=== PATIENT | female | born 1985 | race Two or more races ===

== ENCOUNTER 2018-08-30 15:44 | Outpatient (CLI) | payer OTHER | END 2018-08-30 15:54 | disposition home or self-care (01) | LOC: LAB 15:44 | DX: J03.80 Acute tonsillitis due to other specified organisms (principal) ==

== ENCOUNTER → 2018-08-30 | Outpatient (CLI) | payer OTHER | END | disposition home or self-care (01) | LOC: RAD 14:39 | DX: J01.90 Acute sinusitis, unspecified (principal) ==

== ENCOUNTER → 2019-04-27 | Emergency (ER) | payer OTHER ==
[~2019-04-27] VITALS: Ht 162.6 cm; Wt 80.3 kg
[~2019-04-27] MED LIST: ZITHROMAX500 MG PO
== END | disposition home or self-care (01) ==
LOC: ER 11:02
DX: B34.9 Viral infection, unspecified (principal)

== ENCOUNTER 2019-05-16 11:42 | Outpatient (CLI) | payer OTHER | END 2019-05-16 11:55 | disposition home or self-care (01) | LOC: LAB 11:42 | DX: J45.998 Other asthma (principal) ==

== ENCOUNTER 2022-07-26 09:23 | Outpatient (CLI) | payer OTHER | END 2022-07-26 09:30 | disposition home or self-care (01) | LOC: LAB 09:23 | PROVIDERS: ATTEND Pediatrics | DX: E06.3 Autoimmune thyroiditis (principal); Z13.0 Encounter for screening for diseases of the blood and blood-forming organs and certain disorders involving the immune mechanism; E78.5 Hyperlipidemia, unspecified; Z13.1 Encounter for screening for diabetes mellitus ==

== ENCOUNTER 2022-07-26 10:07 | Outpatient (CLI) | payer OTHER | END 2022-07-26 10:15 | disposition home or self-care (01) | LOC: SONOGRAMA 10:07 | PROVIDERS: ATTEND Pediatrics | DX: E06.3 Autoimmune thyroiditis (principal) ==

== ENCOUNTER → 2022-08-01 15:31 | Outpatient (CLI) | payer OTHER | END | disposition home or self-care (01) | LOC: LAB 15:31 | PROVIDERS: ATTEND Pediatrics | DX: N39.0 Urinary tract infection, site not specified (principal) ==

== ENCOUNTER 2023-03-03 18:17 | Emergency (ER) | payer OTHER ==
[~2023-03-03] VITALS: Ht 162.6 cm; Wt 81.6 kg
[2023-03-03 19:53] LABS: HEMATOCRIT 39.3 % (36.0-45.00); HEMOGLOBIN 13.1 g/dL (12.0-15.00); MEAN CELL VOLUME 89.7 fL (80.00-100.00); MEAN CORPUSCULAR HEMOGLOBIN 29.8 pg (27.00-32.0); MEAN CORPUSCULAR HGB CONC 33.2 g/dl (32.0-36.0); PLATELET COUNT 248 K/uL (150-450); RED BLOOD COUNT 4.39 M/uL (4.00-6.00)
[2023-03-03 20:32] LABS: CALCIUM 9.5 mg/dL (8.5-10.1); CREATININE SERUM 0.72 mg/dL (0.55-1.02); GFR 91.65; POTASSIUM 3.58 mEq/L (3.5-5.1)
== END 2023-03-03 21:33 | disposition home or self-care (01) ==
LOC: ER 18:18
PROVIDERS: General Practice
DX: O03.9 Complete or unspecified spontaneous abortion without complication (principal); O30.001 Twin pregnancy, unspecified number of placenta and unspecified number of amniotic sacs, first trimester; Z3A.08 8 weeks gestation of pregnancy

== ENCOUNTER 2023-03-05 16:27 | Outpatient (CLI) | payer OTHER ==
[2023-03-05 17:08] LABS: HEMATOCRIT 38.4 % (36.0-45.00); HEMOGLOBIN 13.1 g/dL (12.0-15.00); MEAN CELL VOLUME 88.3 fL (80.00-100.00); PLATELET COUNT 229 K/uL (150-450); RED BLOOD COUNT 4.35 M/uL (4.00-6.00); RED CELL DISTRIBUTION WIDTH 12.9 % (11.5-14.5)
== END 2023-03-05 16:48 | disposition home or self-care (01) ==
LOC: LAB 16:27
PROVIDERS: ATTEND General Practice
DX: Z12.11 Encounter for screening for malignant neoplasm of colon (principal); D64.9 Anemia, unspecified; E03.8 Other specified hypothyroidism; N95.1 Menopausal and female climacteric states; I10 Essential (primary) hypertension; C51.9 Malignant neoplasm of vulva, unspecified; N30.00 Acute cystitis without hematuria; C83.51 Lymphoblastic (diffuse) lymphoma, lymph nodes of head, face, and neck; A64 Unspecified sexually transmitted disease; R97.0 Elevated carcinoembryonic antigen [CEA]; R79.89 Other specified abnormal findings of blood chemistry; E55.9 Vitamin D deficiency, unspecified; A60.9 Anogenital herpesviral infection, unspecified; E88.818 Other insulin resistance

== ENCOUNTER 2024-02-04 12:04 | Emergency (ER) | payer OTHER ==
[~2024-02-04] VITALS: Ht 162.6 cm; Wt 81.6 kg
[2024-02-04 13:45] LABS: HEMATOCRIT 37.9 % (36.0-45.00); HEMOGLOBIN 12.8 g/dL (12.0-15.00); MEAN CELL VOLUME 88.7 fL (80.00-100.00); MEAN CORPUSCULAR HGB CONC 33.8 g/dl (32.0-36.0); PLATELET COUNT 230 K/uL (150-450); RED BLOOD COUNT 4.27 M/uL (4.00-6.00); RED CELL DISTRIBUTION WIDTH 13.3 % (11.5-14.5)
== END 2024-02-04 18:17 | disposition left against medical advice (07) ==
LOC: ER 12:05
PROVIDERS: Emergency Medicine
DX: O20.8 Other hemorrhage in early pregnancy (principal); Z3A.01 Less than 8 weeks gestation of pregnancy

== ENCOUNTER → 2024-02-19 09:59 | Outpatient (CLI) | payer OTHER ==
[2024-02-19 12:13] LABS: T4 FREE 0.9 NG/ML (0.76-1.46); TSH 1.15 uIU/mL (0.358-3.74)
[2024-02-21 09:08] LABS: PROLACTIN 14.1 ng/mL (4.8-33.4); hav igm Negative (Negative); hcv Non Reactive (Non Reactive); hep b c Negative (Negative); hep b s ag Negative (Negative)
[2024-02-21 11:12] LABS: INSULIN LEVELS 5.9 uIU/mL (2.6-24.9)
[2024-02-27 15:04] LABS: T T 6 ng/dL (8-60); test free 0.5 pg/mL (0.0-4.2)
== END | disposition home or self-care (01) ==
LOC: LAB 09:59
PROVIDERS: ATTEND Obstetrics & Gynecology
DX: D64.9 Anemia, unspecified (principal); Z12.11 Encounter for screening for malignant neoplasm of colon; E03.8 Other specified hypothyroidism; N95.0 Postmenopausal bleeding; I10 Essential (primary) hypertension; C51.9 Malignant neoplasm of vulva, unspecified; N30.00 Acute cystitis without hematuria; E83.51 Hypocalcemia; A64 Unspecified sexually transmitted disease; N39.0 Urinary tract infection, site not specified; R97.8 Other abnormal tumor markers; E55.9 Vitamin D deficiency, unspecified; A60.9 Anogenital herpesviral infection, unspecified; N97.9 Female infertility, unspecified

== ENCOUNTER 2024-03-25 09:10 | Outpatient (CLI) | payer OTHER | END 2024-03-25 09:20 | disposition home or self-care (01) | LOC: SONOGRAMA 09:10 | PROVIDERS: ATTEND General Practice | DX: R10.2 Pelvic and perineal pain (principal); N97.9 Female infertility, unspecified ==

== ENCOUNTER 2025-01-06 08:00 | Outpatient (CLI) | payer OTHER ==
[~2025-01-06] VITALS: Ht 162.6 cm; Wt 86.2 kg
[2025-01-06 10:45] VITALS: BP 116/79
[2025-01-06 10:50] LABS: URINE APPEARANCE Clear; URINE BILIRRUBIN Negative (NEGATIVE); URINE BLOOD Negative; URINE COLOR Yellow; URINE GLUCOSE Negative (NEGATIVE); URINE KETONE Negative (NEGATIVE); URINE LEUKOCYTE Negative; URINE NITRATE Negative; URINE PROTEIN Negative (NEGATIVE); URINE UROBILINOGEN 0.2 E.U./dl
[2025-01-06 10:52] LABS: BASO % 0.7 % (0.1-1.2); EOS # 0.09 (0.04-0.54); EOS % 1.3 % (0.7-7.0); LYMPH # 2.36 (1.18-3.74); LYMPH % 33.1 % (19.3-53.1); MEAN PLATELET VOLUME 10.50 fl (9.4-12.4); MONO # 0.60 (0.24-0.82); MONO % 8.4 % (4.7-12.5); NEUT # 4.01 (1.56-6.13); NEUT % 56.2 % (34.0-71.1); RED CELL DISTRIBUTION WIDTH 12.7 % (11.6-14.4)
[2025-01-06 10:53] LABS: URINE BACTERIA 842.4 uL (0.0-1933); URINE EPITHELIAL CELLS 10.4 uL (0.0-38.8); URINE RBC 3.6 uL (0.0-20.8); URINE WBC 5.2 uL (0.0-23.2)
[2025-01-06 10:54] LABS: URINE CAST 0.14 uL (0.0-1.40)
[2025-01-06 11:23] LABS: INR 1.0
[2025-01-06 11:30] LABS: ALT/SGPT 23.0 U/L (12-78); AST/SGOT 12.0 U/L (15-37); BILIRUBIN TOTAL 0.85 mg/dL (0.3-1.2); BUN CREA RATIO 14.0 (7.0-25.0); CREATININE SERUM 0.71 mg/dL (0.55-1.02); GFR 92.63; GLOBULINA 3.2 G/DL (2.4-3.5); GLUCOSE FASTING 90.0 mg/dL (65-100); OSMOLALITY SERUM 284.0 MOSM/KG (275-295)
== END 2025-01-06 08:15 | disposition home or self-care (01) ==
LOC: RAD 08:00 → LAB 08:00 → RAD 08:15 → ADM 08:30 → EDSTATUS 01-13 08:30 → CIR.AMB 01-13 08:30
PROVIDERS: ATTEND Orthopaedic Surgery Hand Surgery
DX: M24.541 Contracture, right hand (principal); E11.9 Type 2 diabetes mellitus without complications; E78.00 Pure hypercholesterolemia, unspecified; E78.3 Hyperchylomicronemia; D65 Disseminated intravascular coagulation [defibrination syndrome]; D66 Hereditary factor VIII deficiency; N39.0 Urinary tract infection, site not specified; Z01.810 Encounter for preprocedural cardiovascular examination; I10 Essential (primary) hypertension; Z01.818 Encounter for other preprocedural examination

== ENCOUNTER 2025-02-04 15:59 | Inpatient (IN) | payer OTHER ==
[~2025-02-04] VITALS: Ht 162.6 cm; Wt 86.2 kg
[2025-02-04 16:31] LABS: BASO % 0.7 % (0.1-1.2); EOS # 0.08 (0.04-0.54); EOS % 0.9 % (0.7-7.0); LYMPH # 2.62 (1.18-3.74); LYMPH % 29.5 % (19.3-53.1); MEAN PLATELET VOLUME 10.00 fl (9.4-12.4); MONO # 0.62 (0.24-0.82); MONO % 7.0 % (4.7-12.5); NEUT # 5.48 (1.56-6.13); NEUT % 61.6 % (34.0-71.1); RED CELL DISTRIBUTION WIDTH 12.5 % (11.6-14.4)
[2025-02-04 16:32] LABS: URINE APPEARANCE Clear; URINE BILIRRUBIN Negative (NEGATIVE); URINE BLOOD Small; URINE COLOR Yellow; URINE GLUCOSE Negative (NEGATIVE); URINE KETONE Negative (NEGATIVE); URINE LEUKOCYTE Negative; URINE NITRATE Negative; URINE PROTEIN Negative (NEGATIVE); URINE UROBILINOGEN 0.2 E.U./dl
[2025-02-04 16:35] LABS: URINE BACTERIA 161.9 uL (0.0-1933); URINE EPITHELIAL CELLS 3.2 uL (0.0-38.8); URINE RBC 9.9 uL (0.0-20.8); URINE WBC 2.4 uL (0.0-23.2)
[2025-02-04 16:36] VITALS: BP 110/76
[2025-02-04 16:39] LABS: URINE CAST 0.29 uL (0.0-1.40)
[2025-02-04 16:57] LABS: INR 0.98
[2025-02-04 17:03] LABS: ALT/SGPT 29.0 U/L (12-78); AST/SGOT 15.0 U/L (15-37); BILIRUBIN TOTAL 0.46 mg/dL (0.3-1.2); BUN CREA RATIO 13.0 (7.0-25.0); CREATININE SERUM 0.87 mg/dL (0.55-1.02); GFR 72.87; GLOBULINA 3.4 G/DL (2.4-3.5); GLUCOSE FASTING 90.0 mg/dL (65-100); OSMOLALITY SERUM 282.0 MOSM/KG (275-295)
[2025-02-04 18:01] LABS: RH POSITIVE
[2025-02-05 00:42] VITALS: BP 133/81
[2025-02-05 08:54] VITALS: BP 119/76
[2025-02-05] MEDS ORDERED: METHOTREXATE SODIUM/PF 25 MG/ML VIAL IM NR (09:00)
== END 2025-02-05 15:07 | disposition home or self-care (01) | DRG 833 ==
LOC: OB/GYN 15:59
PROVIDERS: ADMIT Specialist; ATTEND Specialist
PROC: BU4CZZZ Ultrasonography of Uterus and Ovaries (ICD-10-PCS; principal; 2025-02-04)
DX: O00.90 Unspecified ectopic pregnancy without intrauterine pregnancy (principal)

== ENCOUNTER 2025-02-08 14:15 | Emergency (ER) | payer OTHER ==
[~2025-02-08] VITALS: Ht 162.6 cm; Wt 86.2 kg
[2025-02-08] MEDS ORDERED: FAMOtidine 10 MG/ML (4ML VIAL) IV ONE (15:15)
[2025-02-08] MEDS ORDERED: 0.9 % SODIUM CHLORIDE 1,000 ML IV ONE (15:15)
[2025-02-08] MEDS ORDERED: ONDANSETRON HCL 2 MG/ML VIAL IV ONE (15:15)
[2025-02-08] MEDS ORDERED: MORPHINE SULFATE 4 MG/ML CARTRIDGE IV ONE (15:15)
[2025-02-08] MEDS ORDERED: ONDANSETRON HCL 2 MG/ML VIAL ONE (15:31)
[2025-02-08] MEDS ORDERED: FAMOTIDINE/PF 20 MG/2 ML VIAL ONE (15:31)
[2025-02-08 15:58] LABS: BASO % 0.3 % (0.1-1.2); EOS # 0.04 (0.04-0.54); EOS % 0.3 % (0.7-7.0); LYMPH # 1.81 (1.18-3.74); LYMPH % 14.5 % (19.3-53.1); MEAN PLATELET VOLUME 10.40 fl (9.4-12.4); MONO # 0.80 (0.24-0.82); MONO % 6.4 % (4.7-12.5); NEUT # 9.71 (1.56-6.13); NEUT % 78.2 % (34.0-71.1); RED CELL DISTRIBUTION WIDTH 11.9 % (11.6-14.4)
[2025-02-08 16:16] LABS: URINE APPEARANCE Cloudy; URINE BILIRRUBIN Negative (NEGATIVE); URINE BLOOD Small; URINE COLOR Yellow; URINE GLUCOSE Negative (NEGATIVE); URINE KETONE Trace (NEGATIVE); URINE LEUKOCYTE Negative; URINE NITRATE Negative; URINE PROTEIN Negative (NEGATIVE); URINE UROBILINOGEN 0.2 E.U./dl
[2025-02-08 16:21] LABS: URINE BACTERIA 152.3 uL (0.0-1933); URINE EPITHELIAL CELLS 24.9 uL (0.0-38.8); URINE RBC 6.8 uL (0.0-20.8); URINE WBC 15.3 uL (0.0-23.2)
[2025-02-08 16:26] LABS: URINE CAST 0.29 uL (0.0-1.40)
[2025-02-08 16:26] LABS: INR 1.03
[2025-02-08 16:56] LABS: ALT/SGPT 41.0 U/L (12-78); AST/SGOT 20.0 U/L (15-37); BILIRUBIN TOTAL 1.22 mg/dL (0.3-1.2); BUN CREA RATIO 16.0 (7.0-25.0); CREATININE SERUM 0.8 mg/dL (0.55-1.02); GFR 80.27; GLOBULINA 3.9 G/DL (2.4-3.5); GLUCOSE FASTING 91.0 mg/dL (65-100); OSMOLALITY SERUM 281.0 MOSM/KG (275-295)
[2025-02-08 17:42] LABS: HCG QUANTITATIVE 947.0 mUI/mL (1-3)
[2025-02-08] MEDS ORDERED: MORPHINE SULFATE 4 MG/ML CARTRIDGE IV PRN (18:15)
== END 2025-02-09 10:38 | disposition home or self-care (01) ==
LOC: ER 14:16
PROVIDERS: General Practice
DX: O00.80 Other ectopic pregnancy without intrauterine pregnancy (principal); R10.21 Pelvic and perineal pain right side; E03.8 Other specified hypothyroidism

== ENCOUNTER 2025-03-31 10:00 | Day surgery (SDC) | payer OTHER ==
[2025-03-23 09:10] VITALS: BP 130/84
[2025-03-23 09:42] LABS: URINE APPEARANCE Clear; URINE BILIRRUBIN Negative (NEGATIVE); URINE BLOOD Negative; URINE COLOR Dark Yellow; URINE GLUCOSE Negative (NEGATIVE); URINE KETONE 15 (NEGATIVE); URINE LEUKOCYTE Trace; URINE NITRATE Negative; URINE PROTEIN Trace (NEGATIVE); URINE UROBILINOGEN 1.0 E.U./dl
[2025-03-23 09:46] LABS: URINE BACTERIA 268.7 uL (0.0-1933); URINE EPITHELIAL CELLS 11.8 uL (0.0-38.8); URINE RBC 15.8 uL (0.0-20.8); URINE WBC 3.0 uL (0.0-23.2)
[2025-03-23 09:48] LABS: URINE CAST 0.14 uL (0.0-1.40)
[2025-03-23 10:20] LABS: BASO % 0.2 % (0.1-1.2); EOS # 0.01 (0.04-0.54); EOS % 0.1 % (0.7-7.0); LYMPH # 0.58 (1.18-3.74); LYMPH % 4.2 % (19.3-53.1); MEAN PLATELET VOLUME 10.90 fl (9.4-12.4); MONO # 0.59 (0.24-0.82); MONO % 4.3 % (4.7-12.5); NEUT # 12.47 (1.56-6.13); NEUT % 90.7 % (34.0-71.1); RED CELL DISTRIBUTION WIDTH 13.0 % (11.6-14.4)
[2025-03-23 10:44] LABS: INR 1.02
[2025-03-23 11:46] LABS: ALT/SGPT 25.0 U/L (12-78); AST/SGOT 12.0 U/L (15-37); BILIRUBIN TOTAL 1.56 mg/dL (0.3-1.2); BUN CREA RATIO 20.0 (7.0-25.0); CREATININE SERUM 0.8 mg/dL (0.55-1.02); GFR 80.27; GLOBULINA 3.2 G/DL (2.4-3.5); GLUCOSE FASTING 104.0 mg/dL (65-100); OSMOLALITY SERUM 281.0 MOSM/KG (275-295)
[~2025-03-31] VITALS: Ht 162.6 cm; Wt 88.5 kg
[~2025-03-31 10:00] MED LIST changes: +CEFAZOLIN SODIUM 1,000 MG VIAL ONE
== END 2025-03-31 15:35 | disposition home or self-care (01) ==
LOC: CIR.AMB 10:00
PROVIDERS: ATTEND Orthopaedic Surgery Hand Surgery
DX: M24.541 Contracture, right hand (principal); M67.843 Other specified disorders of tendon, right hand